=== PATIENT | male | born 1995 | race Caucasian/White ===

== ENCOUNTER → 2020-10-14 08:53 | Outpatient (CLI) | payer MEDICAID, SELFPAY ==
[2020-10-14] VITALS (7 sets, daily range): BP systolic 142–180; BP diastolic 73–96; PULSE 92–104; RESP 16–18; TEMP 36.8–37.6; O2SAT 97–100; BMI 51.2
[2020-10-14] MEDS: Acetaminophen 325 MG Tablet 650 MG PO (09:15)
== END ==
PROVIDERS: Referring Provider Internal Medicine Hematology & Oncology; Visit Provider Internal Medicine Hematology & Oncology
DX: C62.90 Malignant neoplasm of unspecified testis, unspecified whether descended or undescended (principal); D64.81 Anemia due to antineoplastic chemotherapy
CPT/HCPCS: 36430; 86850; 86870; 86880; 86900; 86901; 86902; 86905; 86920; 86922; J7040; P9016; A4216

== ENCOUNTER → 2020-10-22 09:59 | Outpatient (CLI) | payer MEDICAID, SELFPAY ==
[2020-10-14 09:17] VITALS: BMI 51.2
[2020-10-22] VITALS (7 sets, daily range): BP systolic 128–164; BP diastolic 55–82; PULSE 105–112; RESP 16–18; TEMP 36.9–37.7; O2SAT 99–100; BMI 51.2
== END ==
PROVIDERS: Referring Provider Internal Medicine Hematology & Oncology; Visit Provider Internal Medicine Hematology & Oncology
DX: D61.818 Other pancytopenia (principal)
CPT/HCPCS: 36430; 86850; 86870; 86900; 86901; 86902; 86920; 86922; J7040; P9016; A4216

== ENCOUNTER → 2020-11-02 10:30 | Outpatient (CLI) | payer MEDICAID, SELFPAY ==
[2020-10-22 10:23] VITALS: BMI 51.2
[2020-11-02] MEDS: 0.9% NaCl IVPB Med Flush (250 mL) 15 ML IV (10:39)
[2020-11-02 10:53] VITALS: BP 148/83; PULSE 105; RESP 16; TEMP 36.8; O2SAT 97; BMI 51.8
[2020-11-02 11:20] VITALS: BP 162/91; PULSE 107; RESP 16; TEMP 36.6; O2SAT 100
[2020-11-02 12:24] VITALS: BP 137/85; PULSE 105; RESP 16; TEMP 36.6; O2SAT 100
[2020-11-02 13:25] VITALS: BP 144/88; PULSE 113; RESP 16; TEMP 36.7; O2SAT 95
== END ==
PROVIDERS: Referring Provider Internal Medicine Hematology & Oncology; Visit Provider Internal Medicine Hematology & Oncology
DX: D64.81 Anemia due to antineoplastic chemotherapy (principal)
CPT/HCPCS: 36430; 86850; 86870; 86880; 86900; 86901; 86902; 86920; 86922; J7040; J7050; P9040